=== PATIENT | female | born 1945 | race Caucasian/White ===

== ENCOUNTER 2016-11-29 15:29 | Observation (INO) | payer OTHER, MEDICARE ==
[2016-11-29] MEDS ORDERED: DILTIAZEM 25 MG/5 ML VIAL IVP ONE (15:49)
--- NOTE | 2016-11-29 15:49 | CPEKG ---
Heart Rate: 123 RR Interval: 488 QRSD Interval: 88 QT Interval: 324 QTC Interval: 464 QRS [place]: 31 T Wave [place]: -43 EKG Severity - ABNORMAL ECG - EKG Impression: ATRIAL FIBRILLATION, V-RATE 94-165 Electronically Signed By: Dileep Mota 29-Nov-2016 20:07:56
[2016-11-29 15:54] LABS: % IMMATURE GRANULYOCYTES 0.2 % (0.0-1.1); ABSOLUTE IMMATURE GRANULOCYTES 0.01 10^3/uL (0.00-0.10); ADD DIFF? NO; ADD MORPH? NO; ADD SCAN? NO; ATYPICAL LYMPHOCYTE FLAG 20 (0-99); FRAGMENT RBC FLAG 0 (0-99); HEMATOCRIT 45.5 % (38.0-47.0); HEMOGLOBIN 15.1 g/dL (12.6-16.3); LEFT SHIFT FLG 0 (0-99); LIPEMIA HEMOLYSIS FLAG 80 (0-99); MEAN CELL HEMOGLOBIN 28.9 pg (27.9-34.1); MEAN CELL HEMOGLOBIN CONCENTR. 33.2 g/dL (32.4-36.7); MEAN CELL VOLUME 87.2 fL (81.5-99.8); MEAN PLATELET VOLUME 9.3 fL (8.7-11.7); PLATELET CLUMPS FLAG 0 (0-99); PLATELET COUNT 484 10^3/uL (150-400); RED BLOOD CELL COUNT 5.22 10^6/uL (4.18-5.33); RED CELL DISTRIBUTION WIDTH 13.4 % (11.5-15.2)
--- NOTE | 2016-11-29 15:59 | EDPHY ---
HPI/HX/ROS/PE/MDM Narrative: Chief complaint: Palpitations, dizziness HPI: 71-year-old female with history of pemphigus otherwise no significant medical problems presenting with palpitations and dizziness. Patient states that she had a flu-like illness 2 weeks ago which lasted for about a week including body aches, nausea,. When 1 day of vomiting. No diarrhea. She saw her PCP was told was likely fluid but did not have a confirmatory test done. Since that time patient has feeling somewhat lightheaded with some eggs dyspnea on exertion which she has attributed just to recovering from her illness. She does state that she was feels better. Patient states that last night while getting ready for bed she feel that her heart was beating fast and irregular. She has a history of irregular heartbeats in the past has worn a Holter monitor but has never been found to be in any abnormal rhythm. She went to urgent care today was noted to be in a atrial fibrillation with a rapid ventricular response. They sent her here for further evaluation. Denies any fever or chills. No chest pain. Some mild shortness of breath walking up stairs. Has not had any syncope but has felt lightheaded. ROS: 10 point Review of Systems is negative except as noted in the HPI. Past medical history: Pemphigus Medications: Vitamin-D Allergies: No known drug allergies Physical exam: Gen: Awake, Alert, No Distress HEENT: Nose: no rhinorrhea Eyes: PERRLA, EOMI Mouth: Moist mucosa Neck: Supple, no JVD Chest: nontender, lungs clear to auscultation Heart: Irregularly irregular, tachycardic, S1, S2 normal, no murmurs Abd: Soft, non-tender, no guarding Back: no CVA tenderness, no midline tenderness Ext: no edema, non-tender Skin: no rash Neuro: CN II-XII intact, Sensation grossly intact, Strength 5/5 in bilateral upper and lower extremities ED Course: ECG: Irregularly irregular with a rate of 102-179, atrial fibrillation. Mild likely rate-related ST depression less than 1 mm in V3 through V6. No reciprocal changes. Impression: Atrial fibrillation with rapid ventricular response. 71-year-old woman with a new onset AF with RVR of unknown duration. ECG here shows AF with a rate from 102-179. She is otherwise hemodynamically stable. I have ordered 5 mg of IV diltiazem slow push. Electrolytes have been sent. I have discussed case with Dr. Leah Davis, hospitalist. She will admit to the PCU for further care. She agrees with subcu Thaisx at this time. - Data Points Laboratory Results: 11/29/16 15:00 WBC Pending RBC Pending Hgb Pending Hct Pending MCV Pending MCH Pending MCHC Pending RDW Pending Plt Count Pending MPV Pending Neut % (Auto) Pending Lymph % (Auto) Pending [place] % (Auto) Pending Eos % (Auto) Pending Baso % (Auto) Pending Nucleat RBC Rel Count Pending Absolute Neuts (auto) Pending Absolute Lymphs (auto) Pending Absolute Monos (auto) Pending Absolute Eos (auto) Pending Absolute Basos (auto) Pending Absolute Nucleated RBC Pending Immature Gran % Pending Immature Gran # Pending Sodium Pending Potassium Pending Chloride Pending Carbon Dioxide Pending Anion Gap Pending BUN Pending Creatinine Pending Estimated GFR Pending Glucose Pending Calcium Pending Departure - Departure Disposition: [facility] Inpatient Acute Clinical Impression: Atrial fibrillation Condition: Fair
[2016-11-29 16:00] LABS: ANION GAP 14 mEq/L (8-16); CALCIUM 9.1 mg/dL (8.5-10.4); CARBON DIOXIDE 25 mEq/l (22-31); CHLORIDE 105 mEq/L (97-110); CREATININE 0.8 mg/dL (0.6-1.0); GLOMERULAR FILTRATION RATE > 60; GLUCOSE 113 mg/dL (70-100); SODIUM 144 mEq/L (134-144)
[2016-11-29] MEDS ORDERED: ENOXAPARIN 80 MG/0.8 ML SYR SC ONE (16:03)
[2016-11-29] MEDS ORDERED: DILTIAZEM 125 MG in D5W 125 ML IV ONE (16:55)
[2016-11-29] MEDS ORDERED: ACETAMINOPHEN 325 MG TAB PO PRN (17:49)
[2016-11-29] MEDS ORDERED: ONDANSETRON 4 MG/2 ML VIAL IVP PRN (17:49)
[2016-11-29] MEDS ORDERED: DILTIAZEM 125 MG in D5W 125 ML IV SCH (18:00)
[2016-11-29] MEDS ORDERED: NS 1,000 ML IV SCH (18:00)
--- NOTE | 2016-11-29 18:32 | GHP ---
[f rep st] HISTORY AND PHYSICAL DATE OF ADMISSION: 11/29/2016 CHIEF COMPLAINT: Palpitations. HISTORY OF PRESENT ILLNESS: The patient is a 71-year-old female who had a flu-like illness with myal gias and vomiting about 2 weeks ago. The main symptoms have been resolved for the last week; however , she remains very weak, and she lost 10 pounds with this illness and it is still affecting her signi ficantly. Last night, she started to notice some palpitations and felt very dizzy. She noted she wa s having a fast irregular heartbeat. She has worn a Holter monitor in the past for palpitations but they had always read negative. Every time she stands up, she gets very dizzy. She denies any chest pain, shortness of breath, or lower extremity edema. PAST MEDICAL HISTORY: 1. Pemphigus. 2. Urine cancer, status post hysterectomy. 3. Hyperlipidemia. MEDICATIONS: Please see computer record for full detailed list. ALLERGIES: No known drug allergies. SOCIAL HISTORY: No smoking. She drinks alcohol socially. She lives alone with her dog. REVIEW OF SYSTEMS: Complete review of systems obtained. Review of systems is negative on constitutio nal, HEENT, GI, pulmonary, cardiovascular, , hematology, skin, musculoskeletal, endocrine, psych, e xcept for positives and pertinent negatives as under HPI. FAMILY HISTORY: Reviewed. Positive for hyperlipidemia in her mother. PHYSICAL EXAMINATION: GENERAL: Well-developed, well-nourished female in no acute distress. VITAL S IGNS: Temperature is 36.9, pulse 125, blood pressure 141/85, satting 96% on room air. EYES: Normal conjunctivae. Pupils equal, react to light. ENT: Normal ears, nose. Hearing intact. Normal teet h. Oropharynx moist. NECK: Trachea midline. No thyromegaly. CHEST: Normal effort. LUNGS: Edie r to auscultation bilaterally. CARDIOVASCULAR: Irregularly irregular. No murmur. No lower extremi ty edema. ABDOMEN: Soft, nontender. No hepatosplenomegaly. SKIN: Warm, dry, intact, without rash . MUSCULOSKELETAL: No cyanosis or clubbing. Strength 5/5 upper and lower extremities. NEUROLOGIC: Cranial nerves intact. Normal sensation to light touch. PSYCHIATRIC: Alert and oriented x3. Nor mal mood and affect. Normal judgment and insight. Normal memory. LABORATORY DATA: White count 6.25, hematocrit 45.5, platelets 484. Sodium 144, potassium 4.0, chlor belén 105, bicarb 25, BUN 17, creatinine 0.8, glucose 113. EKG, viewed by me, my personal interpretati on is atrial fibrillation with a heart rate of 123. No ST-T wave changes. ASSESSMENT/PLAN: 1. New onset atrial fibrillation. Her history of previous intermittent palpitations, however, sugge sts that she may have been doing this for some time in the past. Rate control will currently be with an IV diltiazem drip overnight. She received an 80 mg dose of subcu Lovenox in the emergency room. Her CHADS2-VASc score is 2 which gives her a yearly stroke risk of 2.2% for which anticoagulation is recommended. We will her start on Eliquis. I will make her n.p.o. after midnight. If she still re silver in atrial fibrillation by morning, cardioversion could be considered. We will check an echocar diogram and a TSH. 2. Hyperlipidemia. Currently not on any medical treatment. We will recheck her lipid panel in the morning. 3. DVT prophylaxis. She is moderate risk. She will be placed on Eliquis, as discussed above. CODE STATUS: Full. ADMISSION STATUS: We will admit under observation as she will hopefully be able go home tomorrow. /[id number]/MODL
[2016-11-29] MEDS: APIXABAN 5 MG TAB PO SCH ×2 (20:15→22:49)
[2016-11-30 05:31] LABS: CHOLESTEROL 224 mg/dL (140-220); CHOLESTEROL/HDL RATIO 5.46 RATIO (1.00-4.44); HIGH DENSITY LIPOPROTEIN 41 mg/dL (40-85); LDL/HDL RATIO 3.83 RATIO (1.00-3.22); LOW DENSITY LIPOPROTEIN 157 mg/dL (80-100); NON-HIGH DENSITY LIPOPROTEIN 183 mg/dL (90-129); TRIGLYCERIDE 131 mg/dL (35-135); VERY LOW DENSITY LIPOPROTEINS 26 mg/dL (8-25)
[2016-11-30 05:38] LABS: TROPONIN I < 0.012 ng/mL (0-0.034)
--- NOTE | 2016-11-30 08:23 | DX ---
Portable Chest, Single View 6:20 AM Hours Indication: Shortness of breath Comparison: None Findings: Lungs are clear except mild diffuse peribronchial thickening. No pneumothorax, airspace con solidation, edema or effusion. Heart size normal. Impression: Mild bronchitis.
--- NOTE | 2016-11-30 08:37 | HOSPPROG ---
[id number] Dr. Ridley -plan to undergo cardioversion today, Eliquis #Recent viral infection -feeling better. CXR shows bronchitis -supportive care #HLD: pt declines statin #Disp: awaiting cardioversion Subjective: no dizziness today Objective: Vital Signs Temp Pulse Resp BP Pulse Ox 37.0 C 68 18 100/59 L 95 11/30/16 07:13 11/30/16 07:13 11/30/16 07:13 11/30/16 07:13 11/30/16 07:13 11/29/16 11/30/16 12/01/16 05:59 05:59 05:59 Intake Total 820 Output Total 2000 Balance -1180 - Physical Exam Constitutional: no apparent distress Eyes: PERRL Ears, Nose, Mouth, Throat: moist mucous membranes Cardiovascular: irregularly irregular, tachycardia, edema (trace LE edema) Respiratory: no respiratory distress, no rales or rhonchi Gastrointestinal: normoactive bowel sounds Genitourinary: no bladder fullness Skin: warm Musculoskeletal: full muscle strength ICD10 Worksheet Patient Problems: Problems Problem Status Diagnosed Atrial fibrillation Acute
--- NOTE | 2016-11-30 08:59 | CPEKG ---
Heart Rate: 73 RR Interval: 822 QRSD Interval: 92 QT Interval: 424 QTC Interval: 468 QRS [place]: 53 T Wave [place]: -46 EKG Severity - ABNORMAL ECG - EKG Impression: ATRIAL FIBRILLATION, V-RATE 55-88 EKG Impression: UNCHANGED IN COMPARISON TO PRIOR Electronically Signed By: Georges Infante 30-Nov-2016 10:00:55
[2016-11-30] MEDS: APIXABAN 5 MG TAB PO SCH (09:39)
[2016-11-30] MEDS: DILTIAZEM 30 MG TAB PO SCH ×3 (09:41→18:30)
--- NOTE | 2016-11-30 10:12 | ECHO ---
[id number] + + [address] : : [place] [address] : : [phone] + + Adult Echocardiographic Report + ----+ :Name: Gael CANTU Date: 11/30/2016 08:28 AM : : Hospital Admission Number: [id number] Location: 203: :: 1945 Gender: Female Height: 61 in : :Age: 71 yrs Race: WH Weight: 165 lb : :Reason For Study: Atrial Fibrillation : : BSA: 1.7 meters2 : + ----+ MMode/2D Measurements & Calculations IVSd: 1.1 cm LVIDd: 5.0 cm EDV(Teich): Ao root diam: LVPWd: 0.90 cm 117.3 ml 3.6 cm LA dimension: 4.0 cm LVLd ap4: 7.3 cm SV(MOD-sp4): EDV(MOD-sp4): 41.0 ml 67.0 ml LVLs ap4: 6.2 cm ESV(MOD-sp4): 26.0 ml EF(MOD-sp4): 61.2 % Normal Measurement Values: + + :LVIDd (3.5-5.7cm) IVSd (0.6-1.1cm) LVPWd (0.6-1.1cm) Aortic Root (2.0-3.7cm)Left Atrium (1.5-4.0cm): :LV Vol(d) (76-115ml) LV Vol(s) (29-48ml) [place]ec Fraction (50-65%)PV Mervin (0.6- 1.2m/s) TV Mervin (0.4-1.0m/s) : :MV E Mervin (0.8-1.0m/s)MV A Mervin (0.3-1.0m/s)LVOT Mervin (0.7-1.2m/s) Asc Ao Mervin ( 0.9-1.8m/s) : + + Doppler Measurements & Calculations MV E max mervin: 59.2 cm/sec Ao V2 max: 81.4 cm/sec TR max mervin: 173.7 cm/sec Ao max P.7 mmHg TR max P.1 mmHg Ao mean P.2 mmHg RAP systole: 5.0 mmHg Ao V2 mean: 68.5 cm/sec RVSP(TR): 17.1 mmHg Ao V2 VTI: 17.4 cm Left Ventricle The left ventricle is normal in size. There is normal left ventricular wall thickness. Left ventricular systolic function is normal. Ejection Fraction = 60-65%. No regional wall motion abnormalities noted. Right Ventricle The right ventricle is normal in size and function. Atria The left atrial size is normal. Right atrial size is normal. Mitral Valve The mitral valve is normal in structure and function. There is no evidence of mitral valve prolapse. There is no mitral valve stenosis. There is mild mitral regurgitation. Tricuspid Valve Normal tricuspid valve. There is mild tricuspid regurgitation. Right ventricular systolic pressure is normal. Aortic Valve The aortic valve is trileaflet. The aortic valve opens well. There is no aortic stenosis. Trace to mild aortic regurgitation. Pulmonic Valve The pulmonic valve is normal in structure and function. There is no pulmonic valvular regurgitation. Great Vessels The aortic root is normal size. Mildly dilated ascending aorta. Ascending aorta is 4.2 cm. Pericardium/Pleural There is no pericardial effusion. Conclusion A complete two-dimensional transthoracic echocardiogram was performed (2D, M-mode, Doppler and color flow Doppler). Previous echo at [facility] 01/20. Left ventricular systolic function is normal. Ejection Fraction = 60-65%. There is mild mitral regurgitation. There is mild tricuspid regurgitation. Right ventricular systolic pressure is normal. Trace to mild aortic regurgitation. Mildly dilated ascending aorta. Final Reading Physician: Dr Lashay Webb electronically signed on 11/30/2016 10:11 AM Ordering Physician: Leah Davis Performed By: Astrid Lewis, JARVIS
[2016-11-30] MEDS ORDERED: DILTIAZEM 30 MG TAB PO SCH (12:00)
[2016-11-30] MEDS ORDERED: BENZOCAINE UNIT DOSE SPRAY HURRICAINE MM ONE (12:15)
[2016-11-30] MEDS ORDERED: PROPOFOL 200 MG/20 ML VIAL IVP ONE (12:15)
[2016-11-30] MEDS ORDERED: MIDAZOLAM 2 MG/2 ML VIAL IVP ONE (12:15)
[2016-11-30] MEDS ORDERED: NS 500 ML IV ONE (12:15)
[2016-11-30] MEDS ORDERED: fentaNYL 100 MCG/2 ML INJ IVP ONE (12:15)
--- NOTE | 2016-11-30 12:36 | CPEKG ---
Heart Rate: 84 RR Interval: 714 QRSD Interval: 90 QT Interval: 392 QTC Interval: 464 QRS [place]: 65 T Wave [place]: -44 EKG Severity - ABNORMAL ECG - EKG Impression: ATRIAL FIBRILLATION, V-RATE 62-100 Electronically Signed By: Graham Mora 30-Nov-2016 19:46:10
--- NOTE | 2016-11-30 15:20 | GCON ---
[f rep st] CONSULTATION CARDIOLOGY CONSULT REASON FOR CONSULTATION: New onset of atrial fibrillation with rapid ventricular response. HISTORY OF PRESENT ILLNESS: The patient reports history of 2 weeks of being diagnosed with "the flu," reporting nasal swabs, has been dealing with an upper respiratory infection with malaise, and occasional nausea and vomiting. She reports she has been improving over the last few weeks. She has been following up with her PCP. She does report that she has had a 10 pound weight loss due to the illness and it has affected her significantly. She reports she had been feeling that she had been improving until Wednesday night in which she felt her heart rate had been running significantly faster than normal with episodes of lightheadedness, reporting occasional near-syncope with standing too quickly, but no actual syncopal events. This had concerned her with worsening symptoms that she came to the hospital yesterday afternoon with no improvement in her symptoms. At that time,it was discovered that she was in atrial fibrillation with rapid ventricular response. Rates varied between 102-179 beats per minute. She had been started on a diltiazem drip, admitted to the hospitalist service. She obtained better rate control and she has been started on anticoagulation of Eliquis. She did have an echocardiogram done yesterday after admission showing normal LV systolic function with EF of 60-65%, mild MR, mild TR, RVSP was normal , trace to mild AI, mildly dilated ascending aorta at 4.2 cm. The patient reports prior to her palpitations she had been using her albuterol significantly more in the last 3 days prior. She does report occasional episode of chest pressure, reporting midsternal, not associated with nausea or diaphoresis. Reporting episodes usually lasted within 1-2 minutes and then subsided, coming on spontaneously during the time that she had rapid heart rate. Since hospitalization, she is under better rate control and has been recently transferred to oral diltiazem. Unfortunately, she does continue to feel fatigued and lightheaded, and when she does get up her atrial fibrillation rate does get up to 120 bpm. She reports since hospitalization no further episodes of chest pressure. She has had negative troponins x2. She does have significant past history of near-syncopal episodes, in which she was evaluated by Dr. Dumont of our practice in March of 2015. There, she did undergo Holter monitoring, which showed occasional PAC and very short bursts of SVT up to 8 beats in length at a rate of 160 bpm, rare preemie PVCs. Also, hyperlipidemia in which she has refused statin therapy in the past. She denies any orthopnea, PND, edema, or symptoms suggestive of TIA or CVA. PAST MEDICAL HISTORY: Includes asthma (rarely uses inhaler), genital herpes, GERD, hyperglycemia, irritable bowel syndrome, migraines, pemphigus, uterine cancer, hyperlipidemia. PAST SURGICAL HISTORY: Includes tonsillectomy. FAMILY HISTORY: Patient with family history that includes heart disease for her father, hyperlipidemia for her mother, and brother with history of hypertension and atrial fibrillation. SOCIAL HISTORY: She lives alone. She is a nonsmoker. She occasionally drinks alcohol. She denies of any illicit drug use. She is retired. ALLERGIES: Patient has no known drug allergies. MEDICATIONS ON ADMISSION: Include: 1. Gaviscon AC liquid 5 mg p.o. h.s. p.r.n. 2. Albuterol 1-2 puffs inhaler q.4 hours p.r.n. 3. Vitamin D 1000 units p.o. daily. REVIEW OF SYSTEMS: Ten-point review of systems on this patient all negative, except as mentioned above. PHYSICAL EXAMINATION: GENERAL APPEARANCE: Medium built, mildly obese female. She is alert and orientated to person, place, time, and situation, appears to be under no acute distress. VITAL SIGNS: Blood pressure 102/69, heart rate of 77, atrial fibrillation on the monitor, respirations 16, saturating 96% on room air, temperature 37.1 degrees Celsius. HEENT: Head is normocephalic. Lips and tongue are pink and moist with no signs of cyanosis. Conjunctivae pink. NECK: Trachea is midline. + 2 carotid pulses bilaterally. No auscultated bruits. No jugular vein distention. RESPIRATORY: Lungs with mild rhonchi, which clear with cough. CARDIAC: Irregular rate, irregular rhythm. S1 and S2. No rubs, gallops, or murmurs noted. ABDOMEN: Soft, nontender. Bowel sounds 4 quadrants. No organomegaly. No palpable masses. SKIN: [place], warm, dry. No cyanosis. No clubbing. No peripheral edema. VASCULAR: +2 carotids bilaterally. +2 radials bilaterally. +1 dorsal pedal and posterior tibial pulses bilaterally. NEURO: Cranial nerves 2-12 grossly intact. LABS: Admission CBC showed WBC 6.25, hemoglobin of 15.1, hematocrit 45.5, platelet count 484. Sodium 144, potassium 4.0, chloride 105, CO2 was 25, BUN 17 , creatinine 0.8, glucose 113. Calcium 9.1. Troponin is noted to be less than 0.012 x2 this morning. Triglycerides were 131, total cholesterol 224, LDL 157, HDL 41. TSH was 2.270 drawn today. IMAGING: Initial electrocardiogram done on admission showed atrial fibrillation , with rapid ventricular response. Repeat electrocardiogram done this morning shows atrial fibrillation with normal rate, nonspecific T-wave abnormalities in inferolateral leads. Chest x-ray shows mild bronchitis. Echocardiogram as mentioned above. ASSESSMENT AND PLAN: 1. Atrial fibrillation with rapid ventricular rate, better rate control with diltiazem at rest. Unfortunately, with any exertion heart rate increases up to the 120s and 130s, reporting patient feeling lightheaded and short of breath with any exertion. She had been started on Eliquis yesterday by hospitalist service. Due to her ongoing symptoms of fatigue and lightheadedness with any exertion, it is felt best that patient proceed on with electrocardioversion. Due to unknown time of atrial fibrillation, we will plan to do a VISHAL before this to assure there is no thrombus in her atrium. Risks and benefits of this procedure were explained to the patient and her son. They both verbalized understanding and are wanting to proceed. It was also explained to the patient that due to her [id number] score of 2 and cardioversion, she will need to remain on anticoagulation for a minimum of 6 weeks postcardioversion, and if she has any other atrial fibrillation events it would be recommended that she stay on anticoagulation lifetime. Will plan that she undergoes 30 day monitor to evaluate her AFib burden as an outpatient. 2. Hypercholesterolemia: Patient noted to have hypercholesterolemia. She has refused statin therapy in the past and she continues to refuse statin at this time. 3. Chest pressure: Patient reported episodes of chest pressure with rapid heart rate initially lasting for less than a few seconds. Troponins are negative. Mildly abnormal electrocardiogram. Echocardiogram showing normal LV wall motion with normal ejection fraction. Would consider further risk analyzing patient stress testing at some point, with her cardiac risk factors. As long as she remains symptom-free, would consider doing as an outpatient in the near future. 4. Upper respiratory infection: She is being followed by hospitalist service. Thank you for this consultation. More recommendations will come post cardioversion. /[id number]/MODL MTDD
[2016-11-30] MEDS ORDERED: PROPOFOL 200 MG/20 ML VIAL ONE (16:02)
[2016-11-30] MEDS ORDERED: MIDAZOLAM 2 MG/2 ML VIAL ONE ×2 (16:03→16:22)
[2016-11-30] MEDS ORDERED: ATROPINE SULFATE 1 MG/10 ML SYR ONE (16:24)
--- NOTE | 2016-11-30 16:50 | PDTEE1 ---
VISHAL Cardioversion Procedure Procedure: Electrical Cardioversion, Transesophageal Echo Indications: Atrial Fibrillation Consent: Signed and in Chart Anticoagulation: Eliquis Procedural Details: Pads were placed in anterior-posterior position. VISHAL probe was advanced and standard images obtained. There is no evidence of left atrial or left atrial appendage thrombus. Synchronized cardioversion attempt #1: 200J Results: Normal sinus rhythm Conclusions: Successful VISHAL Cardioversion Conclusion Comment: continue eliquis for minimum of 4 weeks. Follow up with Dr. Dumont or Dr Wbeb Patient Problems: Problems Problem Status Diagnosed Atrial fibrillation Acute
--- NOTE | 2016-11-30 16:58 | CPEKG ---
Heart Rate: 62 RR Interval: 968 P-R Interval: 156 QRSD Interval: 102 QT Interval: 436 QTC Interval: 443 P [place]: 72 QRS [place]: 30 T Wave [place]: 0 EKG Severity - ABNORMAL ECG - EKG Impression: SINUS RHYTHM EKG Impression: ST DEPRESSION, ANTEROLATERAL LEADS CONSIDER ISCHEMIA POSTERIOR INJURY Electronically Signed By: Graham Mora 30-Nov-2016 19:45:56
[2016-11-30 17:42] VITALS: BP 128/79; RESP 14; TEMP 97.3; O2SAT 93
[2016-11-30 18:20] VITALS: PULSE 60
--- NOTE | 2016-12-01 05:02 | GDS ---
[f rep st] DISCHARGE SUMMARY DISCHARGE DIAGNOSES: 1. New onset atrial fibrillation. 2. Dizziness. 3. Recent viral infection. 4. History of pemphigus. 5. History of uterine cancer, status post hysterectomy. 6. Hyperlipidemia. CONSULTATIONS: Cardiology. PROCEDURES: Successful cardioversion. HISTORY OF PRESENT ILLNESS: Patient is a 71-year-old female, who has had flu- like symptoms including myalgias, vomiting, and weakness 2 weeks ago. Main symptoms have resolved over the last week; however, she remains very weak and has lost 10 pounds with this illness. Last night, she started noticing palpitations and felt very dizzy. She was noted to have a very fast irregular heart rate. She has worn a Holter monitor in the past for palpitations, but they had always read negative per patient. Every time patient stands up, she gets very dizzy. She denies chest pain, shortness of breath, or lower extremity edema. HOSPITAL COURSE BY PROBLEM: 1. New onset atrial fibrillation: HRs 120-130s, symptomatic. Admitted to PCU on diltiazem drip with improvement of her heart rate, but did not convert to sinus rhythm. Started on Eliquis. Underwent successful cardioversion. Echocardiogram showed normal LV function as well as RV. Continue Eliquis for 6 weeks post cardioversion, diltiazem 60mg BID. Follow up with Dr. Dumont or Dr. Webb. 2. Viral illness: Patient states she is feeling better. She is taking in p.o. intake without issue. Electrolytes are within normal. 3. Hyperlipidemia: Patient has refused statin in the past and still declines, though cholesterol elevated at 224. 4. History of uterine cancer, status post hysterectomy. DISPOSITION: Patient is stable for discharge. MEDICATIONS: New medications: Eliquis and diltiazem. FOLLOW UP: 1. Dr. Dumont or Dr. Lashay Webb.. 2. Primary care physician. /[id number]/MODL MTDD
--- NOTE | 2016-12-03 09:13 | ECHO ---
[id number] + + [address] : : [place] [address] : : [phone] + + Transesophageal Echocardiographic Report + ----+ :Name: Gael CANTU Date: 11/30/2016 03:35 PM : : Hospital Admission Number: [id number] Location: [facility]: :: 1945 Gender: Female : :Age: 71 yrs Race: WH : :Reason For Study: Atrial Fibrillation : + ----+ Left Ventricle The left ventricle is normal in size and function. Atria Injection of contrast documented no interatrial shunt. No thrombus is detected in the left atrial appendage. Mitral Valve The mitral valve is normal. There is trace mitral regurgitation. Tricuspid Valve There is trace tricuspid regurgitation. Aortic Valve The aortic valve is trileaflet. Mild aortic regurgitation. Pulmonic Valve The pulmonic valve is normal in structure and function. Procedure Informed consent obtained and timeout performed. Sedation provided by the anesthesia service. VISHAL probe passed without difficulty. No complications. Conclusion A 2D transesophageal echocardiogram with color flow Doppler was performed. Proceed with cardioversion. The left ventricle is normal in size and function. Injection of contrast documented no interatrial shunt. No thrombus is detected in the left atrial appendage. Mild aortic regurgitation. There is trace mitral regurgitation. There is trace tricuspid regurgitation. Final Reading Physician: Dr Lashay Webb electronically signed on 12/03/2016 09:12 AM Ordering Physician: Leah Davis Performed By: Dr Lashay Webb
== END 2016-11-30 19:09 | disposition home or self-care (01) ==
LOC: EDUNIT# → INTOOBSV 16:03 → F2W 18:00
PROVIDERS: ADMIT Internal Medicine; ATTEND Internal Medicine
PROC: B246ZZ4 Ultrasonography of Right and Left Heart, Transesophageal (ICD-10-PCS; principal; 2016-11-29)
PROC: 5A2204Z Restoration of Cardiac Rhythm, Single (ICD-10-PCS; principal; 2016-11-29)
DX: I48.91 Unspecified atrial fibrillation (principal); I08.1 Rheumatic disorders of both mitral and tricuspid valves; E78.5 Hyperlipidemia, unspecified; J40 Bronchitis, not specified as acute or chronic; B34.9 Viral infection, unspecified; L10.9 Pemphigus, unspecified; Z85.42 Personal history of malignant neoplasm of other parts of uterus
CPT/HCPCS: 71010; 92960; 93005; 93306; 93312; 96365; 96372; 99285; G0378; J1650; J2250; J2704; J0461

== ENCOUNTER → 2016-12-09 | Outpatient (CLI) | payer OTHER, MEDICARE | LOC: BHFA 13:00 | PROVIDERS: ATTEND Internal Medicine Cardiovascular Disease | DX: R07.9 Chest pain, unspecified (principal) | CPT/HCPCS: 78452; 93017; A9500 ==

== ENCOUNTER → 2016-12-14 | Outpatient (CLI) | payer OTHER, MEDICARE | LOC: BHFA 09:45 | PROVIDERS: ATTEND Internal Medicine Cardiovascular Disease | DX: I48.0 Paroxysmal atrial fibrillation (principal); E78.5 Hyperlipidemia, unspecified ==

== ENCOUNTER → 2017-05-28 | Outpatient (CLI) | payer OTHER, MEDICARE | LOC: BMCIMAGING 10:53 | PROVIDERS: ATTEND Family Medicine | DX: S92.512A Displaced fracture of proximal phalanx of left lesser toe(s), initial encounter for closed fracture (principal) ==

== ENCOUNTER 2017-06-18 05:25 | Observation (INO) | payer OTHER, MEDICARE ==
--- NOTE | 2017-06-18 06:03 | EDPHY ---
H & P Stated Complaint: AWOKE 0415, BALANCE OFF, ?LEFT SIDE WEAK, SHAKEY, DRY MOUTH, ANXIOUS Time Seen by Provider: 06/18/17 05:33 HPI/ROS: Chief Complaint: Lightheaded, left leg numbness and weakness HPI: 9-year-old woman woke this morning at about 4:30 with sensation of lightheadedness and her left leg felt numb from her hip down. She was able to get up and ambulate but felt as if her left side did not match her right. She has a history of paroxysmal atrial fibrillation for which she takes Coumadin. Denies any falls. No headache. Last INR was 1/2 weeks ago was 2.5. Denies any room spinning but is continuing to have some lightheadedness. No nausea or vomiting. No chest pain or shortness of breath. No palpitations. She has not had any back pain ROS: 10 point Review of Systems is negative except as noted in the HPI. PMH: Atrial fibrillation, remote uterine cancer status post hysterectomy, pemphigus Social History: No smoking, occasional alcohol, no recreational drug use Family History: non-contributory Physical Exam: Gen: Awake, Alert, No Distress HEENT: Nose: no rhinorrhea Eyes: PERRLA, EOMI Mouth: Moist mucosa Neck: Supple, no JVD Chest: nontender, lungs clear to auscultation Heart: S1, S2 normal, no murmur Abd: Soft, non-tender, no guarding Back: no CVA tenderness, no midline tenderness Ext: no edema, non-tender Skin: no rash Neuro: CN II-XII intact, see NIH stroke score. She does have some decreased sensation to light touch in the lateral aspect of her left thigh left calf and lateral left foot. Strength is 5 in 5 in bilateral lower extremities - Personal History Current Tetanus/Diphtheria Vaccine: Unsure - Medical/Surgical History Hx Asthma: Yes Hx Chronic Respiratory Disease: No Hx Diabetes: No Hx Cardiac Disease: No Hx Renal Disease: No Hx Cirrhosis: No Hx Alcoholism: No Hx HIV/AIDS: No Hx Splenectomy or Spleen Trauma: No Other PMH: PMH: asthma, uterine cancer. pemphigus. tonsillectomy, cataract surgery, hysterectomy, AFIB - Social History Smoking Status: Former smoker Constitutional: Initial Vital Signs Heart Rate 82 06/18/17 05:30 Respiratory Rate 22 H 06/18/17 05:30 Blood Pressure 168/93 H 06/18/17 05:30 O2 Sat (%) 97 06/18/17 05:30 O2 Delivery Mode Room Air Allergies/Adverse Reactions: No Known Allergies Allergy (Unverified 06/18/17 05:29) Home Medications: Medication Instructions Recorded Diltiazem HCl [Diltiazem 12Hr ER] 60 mg PO BID #60 cap.er.12h 11/30/16 Medical Decision Making - Diagnostics EKG Interpretation: ECG time 6:03 a.m. sinus rhythm with a rate of 70, normal axis, normal intervals , no acute ST or T-wave changes. Impression: Normal ECG. ED Course/Re-evaluation: Patient is refusing CT scan at this time. She would prefer to have an MRI. NIH stroke score is 1. This is due to mild left leg lateral dullness to light touch and asymmetry to sensation. She does have risk factors for CVA she is paroxysmal AFib on Coumadin. She is not currently in AFib. Will check blood work including coags. Patient discussed with Dr. argueta, hospitalist. She will admit to her service for further care. Will hold off on aspirin until MRI rules out bleed. Patient has continued to refuse CT scan of the brain. - Data Points Laboratory Results: Laboratory Results 06/18/17 06:10 06/18/17 06:10 06/18/17 06/18/17 06/18/17 06:10 06:10 06:10 WBC RBC Hgb Hct MCV MCH MCHC RDW Plt Count MPV Neut % (Auto) Lymph % (Auto) Wayne % (Auto) Eos % (Auto) Baso % (Auto) Nucleat RBC Rel Count Absolute Neuts (auto) Absolute Lymphs (auto) Absolute Monos (auto) Absolute Eos (auto) Absolute Basos (auto) Absolute Nucleated RBC Immature Gran % Immature Gran # PT 20.8 SEC H SEC (12.0-15.0) INR 1.78 H (0.83-1.16) APTT 33.3 SEC SEC (23.0-38.0) Sodium 137 mEq/L mEq/L (134-144) Potassium 3.9 mEq/L mEq/L (3.5-5.2) Chloride 102 mEq/L mEq/L (97-110) Carbon Dioxide 26 mEq/l mEq/l (22-31) Anion Gap 9 mEq/L mEq/L (8-16) BUN 20 mg/dL mg/dL (7-23) Creatinine 0.9 mg/dL mg/dL (0.6-1.0) Estimated GFR > 60 Glucose 90 mg/dL mg/dL (70-100) Calcium 9.3 mg/dL mg/dL (8.5-10.4) Troponin I Pending Urine Color Urine Appearance Urine pH Ur Specific [place] Urine Protein Urine Ketones Urine Blood Urine Nitrate Urine Bilirubin Urine Urobilinogen Ur Leukocyte Esterase Urine Glucose 06/18/17 06/18/17 06:10 06:10 WBC 6.41 10^3/uL 10^3/uL (3.80-9.50) RBC 4.85 10^6/uL 10^6/uL (4.18-5.33) Hgb 13.8 g/dL g/dL (12.6-16.3) Hct 42.0 % % (38.0-47.0) MCV 86.6 fL fL (81.5-99.8) MCH 28.5 pg pg (27.9-34.1) MCHC 32.9 g/dL g/dL (32.4-36.7) RDW 13.7 % % (11.5-15.2) Plt Count 276 10^3/uL 10^3/uL (150-400) MPV 9.4 fL fL (8.7-11.7) Neut % (Auto) 49.4 % % (39.3-74.2) Lymph % (Auto) 37.1 % % (15.0-45.0) Wayne % (Auto) 10.1 % % (4.5-13.0) Eos % (Auto) 2.2 % % (0.6-7.6) Baso % (Auto) 0.9 % % (0.3-1.7) Nucleat RBC Rel Count 0.0 % % (0.0-0.2) Absolute Neuts (auto) 3.16 10^3/uL 10^3/uL (1.70-6.50) Absolute Lymphs (auto) 2.38 10^3/uL 10^3/uL (1.00-3.00) Absolute Monos (auto) 0.65 10^3/uL 10^3/uL (0.30-0.80) Absolute Eos (auto) 0.14 10^3/uL 10^3/uL (0.03-0.40) Absolute Basos (auto) 0.06 10^3/uL 10^3/uL (0.02-0.10) Absolute Nucleated RBC 0.00 10^3/uL 10^3/uL (0-0.01) Immature Gran % 0.3 % % (0.0-1.1) Immature Gran # 0.02 10^3/uL 10^3/uL (0.00-0.10) PT INR APTT Sodium Potassium Chloride Carbon Dioxide Anion Gap BUN Creatinine Estimated GFR Glucose Calcium Troponin I Urine Color Pending Urine Appearance Pending Urine pH Pending Ur Specific [place] Pending Urine Protein Pending Urine Ketones Pending Urine Blood Pending Urine Nitrate Pending Urine Bilirubin Pending Urine Urobilinogen Pending Ur Leukocyte Esterase Pending Urine Glucose Pending Departure - Departure Disposition: [facility] Inpatient Acute Clinical Impression: TIA (transient ischemic attack) Condition: Fair Referrals: Justine Hernández MD [Primary Care Provider] - As per Instructions NIH Stroke Scale Date of Exam: 06/18/17 Time of Exam: 05:45 Level of Consciousness: Alert LOC Questions: Answers Both LOC Commands: Performs Both Correctly Best Gaze: Normal Visual: No Visual Loss Facial Palsy: Normal Motor Arm-Left: No Drift Motor Arm-Right: No Drift Motor Leg-Left: No Drift Motor Leg-Right: No Drift Limb Ataxis: Absent Sensory: Mild/Mod Sensory Loss Best Language: No Aphasia Dysarthria: Normal Extinction and Inattention (Neglect): No Abnormality NIH Scale Score: 1
--- NOTE | 2017-06-18 06:04 | CPEKG ---
Heart Rate: 70 RR Interval: 857 P-R Interval: 156 QRSD Interval: 100 QT Interval: 376 QTC Interval: 406 P Paris: 70 QRS Paris: 30 T Wave Paris: -60 EKG Severity - NORMAL ECG - EKG Impression: SINUS RHYTHM Electronically Signed By: Dileep Mota 18-Jun-2017 06:11:13
[2017-06-18 06:21] LABS: % IMMATURE GRANULYOCYTES 0.3 % (0.0-1.1); ABSOLUTE IMMATURE GRANULOCYTES 0.02 10^3/uL (0.00-0.10); ADD DIFF? NO; ADD MORPH? NO; ADD SCAN? NO; ATYPICAL LYMPHOCYTE FLAG 10 (0-99); FRAGMENT RBC FLAG 0 (0-99); HEMOGLOBIN 13.8 g/dL (12.6-16.3); LEFT SHIFT FLG 0 (0-99); LIPEMIA HEMOLYSIS FLAG 80 (0-99); MEAN CELL HEMOGLOBIN 28.5 pg (27.9-34.1); MEAN CELL HEMOGLOBIN CONCENTR. 32.9 g/dL (32.4-36.7); MEAN CELL VOLUME 86.6 fL (81.5-99.8); MEAN PLATELET VOLUME 9.4 fL (8.7-11.7); PLATELET CLUMPS FLAG 10 (0-99); PLATELET COUNT 276 10^3/uL (150-400); RED BLOOD CELL COUNT 4.85 10^6/uL (4.18-5.33); RED CELL DISTRIBUTION WIDTH 13.7 % (11.5-15.2)
[2017-06-18 06:30] LABS: APTT 33.3 SEC (23.0-38.0); INR 1.78 (0.83-1.16); PROTIME(PATIENT) 20.8 SEC (12.0-15.0)
[2017-06-18 06:31] LABS: ANION GAP 9 mEq/L (8-16); CALCIUM 9.3 mg/dL (8.5-10.4); CARBON DIOXIDE 26 mEq/l (22-31); CHLORIDE 102 mEq/L (97-110); CREATININE 0.9 mg/dL (0.6-1.0); GLOMERULAR FILTRATION RATE > 60; GLUCOSE 90 mg/dL (70-100); POTASSIUM 3.9 mEq/L (3.5-5.2); SODIUM 137 mEq/L (134-144)
[2017-06-18 06:36] LABS: COLOR YELLOW; LEUKOCYTE ESTERASE,URINE 2+ (NEGATIVE); NITRITE,URINE NEGATIVE (NEGATIVE)
[2017-06-18] MEDS ORDERED: ACETAMINOPHEN 325 MG TAB PO PRN (06:37)
[2017-06-18] MEDS ORDERED: ONDANSETRON 4 MG/2 ML VIAL IVP PRN (06:37)
[2017-06-18] MEDS ORDERED: ONDANSETRON DISINTEGRATING 4 MG TAB PO PRN (06:37)
[2017-06-18 06:45] LABS: MUCUS TRACE /lpf (NONE-1+); WBC,URINE 15-25 /hpf (0-3)
[2017-06-18] MEDS ORDERED: GADOBUTROL 10 ML VIAL IVP ONE (07:01)
--- NOTE | 2017-06-18 07:05 | PDGENHP ---
History and Physical - Chief Complaint left side weakness / numbness - History of Present Illness 72 yo female with h/o A fib presents to ED after awakening this morning feeling lightheaded and then developed left side weakness and numbness. She was able to make it to the bathroom, with difficulty, due to left leg weakness and numbness. She denied facial droop or speech difficulty. She called her god- daughter, who is a PA, and was advised to come to the ED. She drove herself. Her symptoms are mostly resolved at this time, with a vague abnormal sensation in her left leg. She has a h/o paroxysmal A fib and takes coumadin, but notes she forgot a dose 3 days ago. She denies chest pain, SOB, or heart palpitations with this event and notes her HR was normal this morning. She is admitted to the hospital for further TIA workup. History Information - Allergies/Home Medication List Allergies/Adverse Reactions: No Known Allergies Allergy (Unverified 06/18/17 05:29) I have personally reviewed and updated: family history, medical history, social history, surgical history - Past Medical History atrial fibrillation, hyperlipidemia Additional medical history: uterine cancer, s/p hysterectomy, pemphigus - Surgical History Reports: hysterectomy - Family History Positive for: non-pertinent - Social History Smoking Status: Former smoker Alcohol Use: None Drug Use: None Additional social history: Lives alone with her dog. Review of Systems ROS: 10pt was reviewed & negative except for what was stated in HPI & below Physical Exam Temp Pulse Resp BP Pulse Ox 82 22 H 168/93 H 97 06/18/17 05:30 06/18/17 05:30 06/18/17 05:30 06/18/17 05:30 Constitutional: no apparent distress Eyes: PERRL Ears, Nose, Mouth, Throat: moist mucous membranes Cardiovascular: regular rate and rhythym Respiratory: no respiratory distress, clear to auscultation Gastrointestinal: normoactive bowel sounds, soft, non-tender abdomen Skin: warm Musculoskeletal: full muscle strength Neurologic: AAOx3, other (No facial droop. Speech fluent. Pronator drift negative. Sensation normal b/l distal LE's. 5/5 muscle strength b/l UE's and LE's) Psychiatric: interacting appropriately Lab Data & Imaging Review 06/18/17 06:10 06/18/17 06:10 WBC 6.41 10^3/uL (3.80-9.50) 06/18/17 06:10 RBC 4.85 10^6/uL (4.18-5.33) 06/18/17 06:10 Hgb 13.8 g/dL (12.6-16.3) 06/18/17 06:10 Hct 42.0 % (38.0-47.0) 06/18/17 06:10 MCV 86.6 fL (81.5-99.8) 06/18/17 06:10 MCH 28.5 pg (27.9-34.1) 06/18/17 06:10 MCHC 32.9 g/dL (32.4-36.7) 06/18/17 06:10 RDW 13.7 % (11.5-15.2) 06/18/17 06:10 Plt Count 276 10^3/uL (150-400) 06/18/17 06:10 MPV 9.4 fL (8.7-11.7) 06/18/17 06:10 Neut % (Auto) 49.4 % (39.3-74.2) 06/18/17 06:10 Lymph % (Auto) 37.1 % (15.0-45.0) 06/18/17 06:10 [place] % (Auto) 10.1 % (4.5-13.0) 06/18/17 06:10 Eos % (Auto) 2.2 % (0.6-7.6) 06/18/17 06:10 Baso % (Auto) 0.9 % (0.3-1.7) 06/18/17 06:10 Nucleat RBC Rel Count 0.0 % (0.0-0.2) 06/18/17 06:10 Absolute Neuts (auto) 3.16 10^3/uL (1.70-6.50) 06/18/17 06:10 Absolute Lymphs (auto) 2.38 10^3/uL (1.00-3.00) 06/18/17 06:10 Absolute Monos (auto) 0.65 10^3/uL (0.30-0.80) 06/18/17 06:10 Absolute Eos (auto) 0.14 10^3/uL (0.03-0.40) 06/18/17 06:10 Absolute Basos (auto) 0.06 10^3/uL (0.02-0.10) 06/18/17 06:10 Absolute Nucleated RBC 0.00 10^3/uL (0-0.01) 06/18/17 06:10 Immature Gran % 0.3 % (0.0-1.1) 06/18/17 06:10 Immature Gran # 0.02 10^3/uL (0.00-0.10) 06/18/17 06:10 PT 20.8 SEC (12.0-15.0) H 06/18/17 06:10 INR 1.78 (0.83-1.16) H 06/18/17 06:10 APTT 33.3 SEC (23.0-38.0) 06/18/17 06:10 Sodium 137 mEq/L (134-144) 06/18/17 06:10 Potassium 3.9 mEq/L (3.5-5.2) 06/18/17 06:10 Chloride 102 mEq/L (97-110) 06/18/17 06:10 Carbon Dioxide 26 mEq/l (22-31) 06/18/17 06:10 Anion Gap 9 mEq/L (8-16) 06/18/17 06:10 BUN 20 mg/dL (7-23) 06/18/17 06:10 Creatinine 0.9 mg/dL (0.6-1.0) 06/18/17 06:10 Estimated GFR > 60 06/18/17 06:10 Glucose 90 mg/dL (70-100) 06/18/17 06:10 Calcium 9.3 mg/dL (8.5-10.4) 06/18/17 06:10 Urine Color YELLOW 06/18/17 06:10 Urine Appearance CLEAR 06/18/17 06:10 Urine pH 5.0 (5.0-7.5) 06/18/17 06:10 Ur Specific [place] 1.015 (1.002-1.030) 06/18/17 06:10 Urine Protein NEGATIVE (NEGATIVE) 06/18/17 06:10 Urine Ketones NEGATIVE (NEGATIVE) 06/18/17 06:10 Urine Blood 1+ (NEGATIVE) H 06/18/17 06:10 Urine Nitrate NEGATIVE (NEGATIVE) 06/18/17 06:10 Urine Bilirubin NEGATIVE (NEGATIVE) 06/18/17 06:10 Urine Urobilinogen NEGATIVE EU (0.2-1.0) 06/18/17 06:10 Ur Leukocyte Esterase 2+ (NEGATIVE) H 06/18/17 06:10 Urine RBC 1-3 /hpf (0-3) 06/18/17 06:10 Urine WBC 15-25 /hpf (0-3) H 06/18/17 06:10 Ur Epithelial Cells TRACE /lpf (NONE-1+) 06/18/17 06:10 Urine Mucus TRACE /lpf (NONE-1+) 06/18/17 06:10 Urine Glucose NEGATIVE (NEGATIVE) 06/18/17 06:10 Visualized and Interpreted EKG results: Yes EKG Interpretation: Positive for: normal sinsus rhythm Assessment & Plan Assessment: TIA (transient ischemic attack) (Acute) - Concern for cardioembolic source given A fib history with sub-therapeutic INR. She refused head CT in the ED, but agrees to MRI. -Will defer ASA until after MRI to ensure no bleed -Check echo and carotid artery u/s -Lipid panel in am -Neurology consult Paroxysmal A fib - She is in NSR now. INR sub-therapeutic at 1.78. 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 -Cont Dilt once med rec completed -Pharmacy to dose coumadin. Will defer bridging for now as still waiting to confirm no bleed on brain imaging. Hyperlipidemia - check lipid status Full code Dispo - obs
[2017-06-18] MEDS ORDERED: DILTIAZEM 60 MG PO PRN (09:05)
[2017-06-18 10:35] VITALS: TEMP 97.4
[2017-06-18 11:50] VITALS: BP 110/57; PULSE 69; RESP 16; O2SAT 92
--- NOTE | 2017-06-18 13:13 | ECHO ---
[id number] + + [address] : : [place] [address] : : [phone] + + Adult Echocardiographic Report + ------+ :Name: RADHA CANTU Date: 06/18/2017 09:28 AM BP: 127/84 mmHg : : Hospital Admission Number: [id number] Anil n: 343: :: 1945 Gender: Female Height: 74 in : :Age: 72 yrs Race: WH Weight: 167 lb : :Reason For Study: tia; source of emboli : : BSA: 2.0 meters 2 : :History: Tia : + ------+ MMode/2D Measurements \T\ Calculations IVSd: 1.1 cm RVDd: 3.6 cm FS: 44.0 % Ao root diam: LVPWd: 0.98 cm LVIDd: 4.9 cm EDV(Teich): 3.2 cm LVIDs: 2.7 cm 111.5 ml ESV(Teich): 27.8 ml EF(Teich): 75.0 % LVLd ap4: 7.7 cm SV(MOD-sp4): EDV(MOD-sp4): 67.0 ml 120.0 ml LVLs ap4: 6.7 cm ESV(MOD-sp4): 53.0 ml EF(MOD-sp4): 55.8 % Normal Measurement Values: + + :LVIDd (3.5-5.7cm) IVSd (0.6-1.1cm) LVPWd (0.6-1.1cm) Aortic Root (2.0-3.7cm)Left Atrium (1.5-4.0cm): :LV Vol(d) (76-115ml) LV Vol(s) (29-48ml) Ejec Fraction (50-65%)PV Mervin (0.6- 1.2m/s) TV Mervin (0.4-1.0m/s) : :MV E Mervin (0.8-1.0m/s)MV A Mervin (0.3-1.0m/s)LVOT Mervin (0.7-1.2m/s) Asc Ao Mervin ( 0.9-1.8m/s) : + + Doppler Measurements \T\ Calculations MV E max mervin: Ao V2 max: LV V1 max: PA V2 max: 58.2 cm/sec 138.8 cm/sec 82.9 cm/sec 80.4 cm/sec MV A max mervin: Ao max P.7 mmHgLV V1 max PG: PA max P.9 cm/sec 2.8 mmHg 2.6 mmHg MV E/A: 1.3 MV dec time: 0.20 sec TR max mervin: 215.8 cm/sec TR max P.6 mmHg RAP systole: 10.0 mmHg RVSP(TR): 28.6 mmHg Left Ventricle The left ventricle is normal in size and function. There is normal left ventricular wall thickness. Ejection Fraction = 60-65%. No regional wall motion abnormalities noted. Right Ventricle The right ventricle is normal in size and function. Atria The left atrium is borderline dilated. The Left Atrial Volume is 32 ml/m2. Right atrial size is normal. A dilated inferior vena cava suggests increased right atrial pressure. Mitral Valve There is borderline mitral valve prolapse. There is no mitral valve stenosis. There is trace to mild mitral regurgitation. Tricuspid Valve The tricuspid valve is normal in structure and function. There is no tricuspid stenosis. There is trace to mild tricuspid regurgitation. Right ventricular systolic pressure is 29mmHg. Aortic Valve The aortic valve is trileaflet. There is no aortic stenosis. Trace to mild aortic regurgitation. Pulmonic Valve The pulmonic valve is normal in structure and function. Trace pulmonic valvular regurgitation. Great Vessels The aortic root is normal size. Mildly dilated ascending aorta. Pericardium/Pleural There is no pericardial effusion. Conclusion A two-dimensional transthoracic echocardiogram with M-mode and Doppler was performed. There is no obvious source of embolus identified. If one is highly clinically suspected, then transesophageal echocardiography should be considered. The left ventricle is normal in size and function. Ejection Fraction = 60-65%. The left atrium is borderline dilated. There is borderline mitral valve prolapse. There is trace to mild mitral regurgitation. There is trace to mild tricuspid regurgitation. Right ventricular systolic pressure is 29mmHg. Trace to mild aortic regurgitation. Trace pulmonic valvular regurgitation. Mildly dilated ascending aorta. Final Reading Physician: Anny Issa signed on 06/18/2017 01:11 PM Ordering Physician: Mandie Blackwell Performed By: Tran Briggs
[2017-06-18] MEDS ORDERED: WARFARIN SODIUM 7.5 MG TAB PO ONE (16:00)
[2017-06-18] MEDS ORDERED: WARFARIN SODIUM 5 MG TAB PO SCH (16:00)
--- NOTE | 2017-06-18 16:59 | PDDCSUM ---
Discharge Summary Discharge Summary: DISCHARGE SUMMARY FOLLOW-UP ITEMS: Outpatient INR follow-up on 06/21 DATE OF ADMISSION: 06/18/2017 DATE OF DISCHARGE: 06/18/2017 DISCHARGE DIAGNOSES: 1. Acute TIA 2. Paroxysmal atrial fibrillation CONSULTATIONS: Neurology PROCEDURES / IMAGING: Brain MRI demonstrating some hyper vascular ischemia and echocardiogram demonstrating no significant valvular abnormalities CHIEF COMPLAINT: Acute paresthesias and paresis SUBJECTIVE: Symptoms completely resolved PHYSICAL EXAM ON DISCHARGE: Systolic blood pressure 130, heart rate 80, afebrile overnight, satting well on room air, alert awake oriented x3, no apparent distress, motor strength is 5/5 bilateral lower extremities, sensation is intact and symmetric bilaterally, patient has facial symmetry LABS ON DISCHARGE: Troponin negative, creatinine 0.9, INR 1.8 HOSPITAL COURSE BY PROBLEM: 1. Acute TIA. Patient's symptoms are consistent with an acute TIA and her brain MRI demonstrates that she is certainly at risk for microvascular disease. This event occurred in the setting of her INR being subtherapeutic, and after consultation, Dr. Martinez has recommended that we give some additional oral Coumadin today to get her INR therapeutic and have outpatient monitoring. She also will follow up with the outpatient neurology clinic. 2. Paroxysmal atrial fibrillation. Patient will follow up with [facility] as scheduled. She will be continued on diltiazem and Coumadin. DISCHARGE MEDICATIONS: Please see official discharge medication reconciliation sheet in chart , 7.5 mg of Coumadin given today, then resume regular dosage. DISCHARGE INSTRUCTIONS: Please follow up with outpatient Neurology in 1 week.
--- NOTE | 2017-06-18 17:07 | GCON ---
[f rep st] CONSULTATION REFERRING PHYSICIAN: Mandie Blackwell MD CHIEF COMPLAINT: TIA. HISTORY OF PRESENT ILLNESS: The patient is a very pleasant 72-year-old lady who was diagnosed with paroxysmal atrial fibrillation in November of this year and had try to novel oral anticoagulants previously with adverse side effects. Therefore, her carpet repairer changed her to warfarin with a goal INR between 2 and 3. This morning, she woke up very early, around 4:30 a.m., with wake-up symptoms of left-sided weakness and listing to the left. These symptoms have resolved now. She had missed a dose of Coumadin around 3 days ago and had a subtherapeutic INR at 1.78. She had an MRI brain which, thankfully, showed no acute infarct. It was done this morning while she was acutely symptomatic. Carotid Doppler shows no significant obstructive disease, no change since 2011 on this study. Lastly, she had an echocardiogram, as well, which showed a normal LV and a borderline dilation of the left atrium, consistent with her history of atrial fibrillation. No intracardiac thrombus noted. No obvious source of embolus, etc. REVIEW OF SYSTEMS: Ten-point review of systems was done. Only pertinent to the HPI. PAST MEDICAL HISTORY/SOCIAL HISTORY/FAMILY HISTORY/HOME MEDICATIONS/ALLERGIES: Please refer to Dr. Blackwell's history and physical. PHYSICAL EXAMINATION: VITAL SIGNS: Blood pressure 110/57, temperature 36.3, O2 sats 96%, heart rate 69. GENERAL: Patient is in no acute distress. A very pleasant and lucid lady. NEURO: Higher mental functions. She is awake and alert, can name 5/5, follows commands 5/5, repeat 5/5. No aphasia. Cranial nerve exam normal 2 through 7, 11, and 12. Motor exam: She has no focal weakness on power testing, each extremity. Tone is normal. Sensory exam is normal to light touch throughout. No sensory extension. Coordination is normal in the upper extremities. IMPRESSION AND PLAN: 1. Transient ischemic attack. 2. Paroxysmal Atrial Fibrillation Overall, the patient's clinical history best fits with a transient ischemic attack in the setting of paroxysmal atrial fibrillation and a subtherapeutic INR. This was discussed at great length with the patient, including diet and vitamin K containing foods that can affect the INR. The case was discussed with Pharmacy, and she will be given a higher dose today of 7.5 mg warfarin ( usual dose 5 mg) and have an INR checked tomorrow morning. A prescription has been given for the INR lab draw. She will touch base with [facility] for recommendation regarding her warfarin dosing based on the INR tomorrow. The patient is adamant about discharging home today and declined self administering low-molecular weight heparin at home for bridging purposes. As noted above, she has agreed to have an INR check tomorrow morning and further warfarin adjustments from [facility]. She will return to the emergency department for any recurrent neurologic symptoms. She will follow up with Dr. Ambrosio, her carpet repairer, in the next month. No further recommendations now. She will likely discharge in the near future. Thank you for this consultation. Please do not hesitate to call for any questions or changes in neurologic status. Seventy total minutes on the floor today in reviewing records, imaging, and in direct counseling with the patient. /[id number]/MODL MTDD
[2017-06-19] MEDS ORDERED: Herbals/Supplements -Info Only PO SCH (09:00)
[2017-06-19] MEDS ORDERED: WARFARIN SODIUM 5 MG TAB PO SCH (16:00)
[2017-06-21] MEDS ORDERED: WARFARIN SODIUM 7.5 MG TAB PO SCH (16:00)
== END 2017-06-18 16:22 | disposition home or self-care (01) ==
LOC: F3N 09:17
PROVIDERS: ADMIT Hospitalist; ATTEND Internal Medicine
DX: G45.9 Transient cerebral ischemic attack, unspecified (principal); I48.0 Paroxysmal atrial fibrillation; Z79.01 Long term (current) use of anticoagulants
CPT/HCPCS: 70553; 93005; 93306; 93880; 97165; A9585; G0378; G8987; G8988; G8989

== ENCOUNTER → 2017-07-07 | Outpatient (CLI) | payer OTHER, MEDICARE | LOC: BHFA 09:00 | PROVIDERS: ATTEND Internal Medicine Cardiovascular Disease | DX: I48.91 Unspecified atrial fibrillation (principal) | CPT/HCPCS: 81291-90; 82607-90; 82627-90; 84144-90; 84402-90; 84481-90 ==

== ENCOUNTER 2017-12-30 11:24 | Emergency (ER) | payer OTHER, MEDICARE ==
[2017-12-30 11:34] VITALS: TEMP 97.5
--- NOTE | 2017-12-30 11:39 | CPEKG ---
Heart Rate: 119 RR Interval: 504 QRSD Interval: 92 QT Interval: 316 QTC Interval: 445 QRS Maz[place]: 33 T Wave Mazama: 261 EKG Severity - ABNORMAL ECG - EKG Impression: ATRIAL FIBRILLATION EKG Impression: CONSIDER POSTERIOR INFARCT EKG Impression: REPOL ABNRM SUGGESTS ISCHEMIA, DIFFUSE LEADS Electronically Signed By: Monico Stoddard 30-Dec-2017 12:45:11
--- NOTE | 2017-12-30 12:23 | EDPHY ---
H & P Stated Complaint: fast hr with any activity since wednesday/taking diltiazem/hx afib Time Seen by Provider: 12/30/17 11:43 HPI/ROS: CHIEF COMPLAINT: Recurrent atrial fibrillation HISTORY OF PRESENT ILLNESS: The patient presents to the ED with current palpitations for the past several days. The patient has a history of paroxysmal atrial fibrillation. She had been on Xarelto which she stopped taking briefly last . She resume that medication on Wednesday. She also started taking diltiazem at that point time. She reports that her palpitations are worsened with exertion. The patient did contact her pot sander who advised she come to the emergency department for evaluation. The patient reports that she ate breakfast today and drank water immediately prior to arrival. REVIEW OF SYSTEMS: A comprehensive 10 point review of systems is otherwise negative aside from elements mentioned in the history of present illness. Source: Patient Exam Limitations: No limitations - Personal History Current Tetanus/Diphtheria Vaccine: Unsure - Medical/Surgical History Hx Asthma: Yes Hx Chronic Respiratory Disease: No Hx Diabetes: No Hx Cardiac Disease: Yes Hx Renal Disease: No Hx Cirrhosis: No Hx Alcoholism: No Hx HIV/AIDS: No Hx Splenectomy or Spleen Trauma: No Other PMH: PMH: asthma, uterine cancer. pemphigus. tonsillectomy, cataract surgery, hysterectomy, AFIB - Social History Smoking Status: Former smoker - Physical Exam Exam: General Appearance: Alert, no distress Eyes: Pupils equal and round no pallor or injection ENT, Mouth: Mucous membranes moist Respiratory: There are no retractions, lungs are clear to auscultation Cardiovascular: Irregular, rate 89 Gastrointestinal: Abdomen is soft and nontender, no masses, bowel sounds normal Neurological: A&O, normal motor function, normal sensory exam, normal cranial nerves Skin: Warm and dry, no rashes Musculoskeletal: Neck is supple nontender Extremities: symmetrical, full range of motion Constitutional: Initial Vital Signs Temperature (C) 36.4 C 12/30/17 11:26 Heart Rate 98 12/30/17 11:26 Respiratory Rate 18 12/30/17 11:26 Blood Pressure 126/81 H 12/30/17 11:26 O2 Sat (%) 99 12/30/17 11:26 O2 Delivery Mode Room Air Allergies/Adverse Reactions: No Known Allergies Allergy (Verified 12/30/17 11:25) Home Medications: Medication Instructions Recorded Diltiazem HCl [Diltiazem 12Hr ER] 60 mg PO BID PRN 06/18/17 Herbals/Supplements -Info Only 1 each PO DAILY 06/18/17 Eliquis 12/30/17 Medical Decision Making ED Course/Re-evaluation: The patient presents to the emergency department with recurrent atrial fibrillation. She is currently rate controlled at 89. She she is not NPO. She also had a lapse in her anticoagulation use. I discussed the case with Dr. Webb from Cardiology. The patient will be discharged from the emergency department given her current NPO status. She will continue her regular Xarelto and diltiazem. She will be NPO after midnight. She will return to the [facility] tomorrow for repeat EKG and possible VISHAL cardioversion. She does understand return to the ED for chest pain, syncope, severe dyspnea or markedly worsening symptoms. Differential Diagnosis: Differential diagnosis considered includes atrial fibrillation, atrial flutter, dehydration, metabolic abnormality Departure - Departure Disposition: Home, Routine, Self-Care Clinical Impression: Atrial fibrillation Condition: Good Instructions: A-fib (Atrial Fibrillation) (DC) Additional Instructions: 1. Please continue your anticoagulation and diltiazem. 2. Nothing to eat or drink after midnight. 3. [facility] will contact you this afternoon to schedule your cardioversion for tomorrow. 4. Please return to the ED for severe chest pain, difficulty breathing, passing out or other concerns. Referrals: Justine Hernández MD [Primary Care Provider] - As per Instructions
[2017-12-30 13:01] VITALS: BP 121/82; PULSE 88; RESP 16; O2SAT 95
== END 2017-12-30 12:55 | disposition home or self-care (01) ==
DX: I48.91 Unspecified atrial fibrillation (principal); J45.909 Unspecified asthma, uncomplicated; Z85.42 Personal history of malignant neoplasm of other parts of uterus; Z87.891 Personal history of nicotine dependence

== ENCOUNTER 2017-12-31 11:44 | Day surgery (SDC) | payer OTHER, MEDICARE ==
[2017-12-31] MEDS ORDERED: MIDAZOLAM 2 MG/2 ML VIAL IVP ONE (11:45)
[2017-12-31] MEDS ORDERED: NS 500 ML IV ONE (11:45)
[2017-12-31] MEDS ORDERED: BENZOCAINE UNIT DOSE SPRAY HURRICAINE MM ONE (11:45)
[2017-12-31] MEDS ORDERED: fentaNYL 100 MCG/2 ML INJ IVP ONE (11:45)
[2017-12-31] MEDS ORDERED: ATROPINE SULFATE 1 MG/10 ML SYR IVP ONE (11:45)
--- NOTE | 2017-12-31 12:14 | CPEKG ---
Heart Rate: 93 RR Interval: 645 QRSD Interval: 90 QT Interval: 368 QTC Interval: 458 QRS [place]: 29 T Wave [place]: 268 EKG Severity - ABNORMAL ECG - EKG Impression: ATRIAL FIBRILLATION, V-RATE 70-127 EKG Impression: NONSPECIFIC REPOL ABNORMALITY, DIFFUSE LEADS Electronically Signed By: Austen Schreiber 31-Dec-2017 17:01:44
[2017-12-31 12:39] LABS: INR 0.96 (0.83-1.16)
--- NOTE | 2017-12-31 12:59 | PDHPUP ---
History & Physical Update H&P update statement: This history and physical update is based on an assessment of the patient which was completed after admission or registration (within 24 hours), but prior to the surgery/procedure. H&P update: H&P reviewed & patient examined, no change in patient's condition since H&P completed
[2017-12-31] MEDS ORDERED: LIDOCAINE 2% 5 ML SDV ONE (13:09)
[2017-12-31] MEDS ORDERED: PROPOFOL/EMULSION 500 MG/50 ML BOTTLE IV ONE (13:09)
--- NOTE | 2017-12-31 13:14 | PDGENHP ---
History & Physical Chief Complaint: AF History of Present Illness: 72 yo F with hx PAF. She has been in AF for 5 days Pertinent Past, Social, Family History: reviewed Relevant Physical Exam: irreg irreg rhythm Cardiorespiratory Assessment: stable per anesthesia
--- NOTE | 2017-12-31 13:30 | PDTEE1 ---
VISHAL Cardioversion Procedure Procedure: electrical cardioversion, transesophageal echo Indications: atrial fibrillation Consent: signed and in chart Anticoagulation: eliquis Procedural Details: Pads were placed in anterior-posterior position. Sedation was provided by the anesthesia service. VISHAL probe was advanced and standard images obtained. There is no evidence of left atrial or left atrial appendage thrombus. Synchronized cardioversion attempt #1: 200J Results: normal sinus rhythm Conclusions: successful VISHAL cardioversion Patient Problems: Problems Problem Status Onset Atrial fibrillation Acute TIA (transient ischemic attack) Acute
--- NOTE | 2017-12-31 13:36 | PDANEPAE ---
ANE History of Present Illness 72 yo female with paroxysmal A-fib presents for VISHAL/ possible CV. ANE Past Medical History - Cardiovascular History Hx Hypertension: No Hx Arrhythmias: Yes Hx Chest Pain: No - Pulmonary History Hx COPD: No Hx Asthma/Reactive Airway Disease: Yes Hx Recent Upper Respiratory Infection: No Hx Oxygen in Use at Home: No Hx Sleep Apnea: No Pulmonary History Comment: No ER visits for RAD. - Endocrine History Hx Diabetes: Yes Hypothyroid: No Hyperthyroid: No Endocrine History Comment: pre-DM. On metformin. Recently diagnosed with [place]'s dz, took her hydrocortisone x5 days, then held it with A-fib onset. - Renal History Hx Renal Disorders: No - Liver History Hx Hepatic Disorders: No - Chronic Pain History Chronic Pain: No ANE Review of Systems Review of Systems: - Systems Constitutional: Reports: no symptoms Cardiac: Reports: no symptoms Respiratory: Reports: shortness of breath (Subjective SOB with onset of A fib. Attributes this to anxiety about the A fib.) Gastrointestinal: Reports: no symptoms Neurological: Reports: paresthesia (L leg sciatica, long-standing per pt) ANE Patient History - Allergies Allergies/Adverse Reactions: aspirin Adverse Reaction (Unknown, Verified 12/31/17 13:15) - Home Medications Home Medications: Diltiazem HCl [Diltiazem 12Hr ER] 60 mg PO BID PRN 06/18/17 [Last Taken 05:00] Herbals/Supplements -Info Only 1 each PO DAILY 06/18/17 [Last Taken 12/30/17 08: 00] Eliquis 5 mg PO BID 12/30/17 [Last Taken 12/31/17 05:00] Metformin HCl 500 mg PO DAILY 12/31/17 [Last Taken 12/30/17 08:00] - NPO status NPO Status: no food or drink >8 hours NPO Since - Liquids (Date): 12/31/17 NPO Since - Liquids (Time): 05:00 NPO Since - Solids (Date): 12/31/17 NPO Since - Solids (Time): 05:00 - Anes Hx Anes Hx: no prior problems - Smoking Hx Smoking Status: Former smoker Marijuana use: No - Alcohol Use Alcohol Use: Rarely - Family Anes Hx Family Anes Hx: neg - N/A ANE Labs/Vital Signs - Labs Result Diagrams: 12/31/17 12:00 - Vital Signs Vital Signs: reviewed preoperatively; see RN documention for details Height: 185 cm Weight: 77.1 kg ANE Physical Exam - Airway Neck exam: FROM Mallampati Score: Class 2 (short TMD) Mouth exam: normal dental/mouth exam - Pulmonary Pulmonary: clear to auscultation - Cardiovascular Cardiovascular: irregularly irregular - ASA Status ASA Status: II ANE Anesthesia Plan Anesthesia Plan: GA with mask Total IV Anesthesia: Yes Urgent/Emergent Case: Raquel brewer completed preop but documented later for safe timely pt care
[2017-12-31] MEDS ORDERED: NALOXONE HCL 0.4 MG/ML INJ IVP PRN (13:37)
[2017-12-31] MEDS ORDERED: ALBUTEROL 3 ML DEYVIAL IH PRN (13:37)
--- NOTE | 2017-12-31 13:37 | POSTANESTH ---
Post Anesthetic Evaluation Cardiovascular Status: Normal, Stable Respiratory Status: Normal, Stable Level of Consciousness/Mental Status: Can Participate in Eval, Moderately Sleepy Pain Control: Adequate, Prn Tx Ordered Nausea/Vomiting Control: Adequate, Prn Tx Ordered Complications Possibly Related to Anesthesia: None Noted
--- NOTE | 2017-12-31 17:34 | ECHO ---
[email or web address] [address] [address] Main: [phone] Fax: Transesophageal Echocardiography Name: RADHA CANTU MR#: [id number] Study Date: 12/31/2017 Study Time: 12:55 PM Date of : 1945 Age: 72 year(s) Height: ( ) Weight: ( ) BSA: Gender: Female Examination: VISHAL Indication: pre-cardioversion; r/o clot Image Quality: Contrast: I.V. dose of agitated saline Requested by: Lashay Webb Heart Rate: Rhythm: BP: / Procedure Staff Bag Shaker: Tran Briggs [facility] Reading Physician: Lashay Webb MD Requesting Provider: VISHAL Exam Details Contrast: I.V. dose of agitated saline Conclusions: Normal size left ventricle. Normal global systolic LV function. Normal size right ventricle. Normal RV function. An agitated saline study was performed and was negative for intracardiac shunting. No thrombus is noted in the left atrium. Mild mitral valve regurgitation is present. Measurements: Chambers Valvular Assessment AV/MV Valvular Assessment TV/PV Normal Normal Normal Name Value Range Name Value Range Name Value Range Additional Measurements: Findings: Left Ventricle: Normal size left ventricle. Normal global systolic LV function. Right Ventricle: Normal size right ventricle. Normal RV function. Left Atrium: The left atrium is normal in size. An agitated saline study was performed and was negative for Patient: RADHA CANTU Study Date: 12/31/2017 Page 1 of 2 12:55 PM intracardiac shunting. No thrombus is noted in the left atrium. Left Atrial Appendage: No tumor in left atrial appendage. Right Atrium: The right atrium is normal in size. Mitral Valve: The mitral valve is normal in appearance and function. Mild mitral valve regurgitation is present. Aortic Valve: The aortic valve is tri-leaflet and functions normally. There is no significant aortic valve regurgitation. No aortic valve stenosis is present. Tricuspid Valve: The tricuspid valve is normal in appearance and function. Trivial tricuspid valve regurgitation. Pulmonic Valve: The pulmonic valve is normal in appearance. Trivial pulmonic valve regurgitation. l1n (No Signature Object) Patient: RADHA CANTU Study Date: 12/31/2017 Page 2 of 2 12:55 PM D:_[id number]
--- NOTE | 2018-01-03 07:45 | CPEKG ---
Heart Rate: 108 RR Interval: 556 P-R Interval: 142 QRSD Interval: 96 QT Interval: 352 QTC Interval: 472 P [place]: 68 QRS [place]: 16 T Wave [place]: 239 EKG Severity - ABNORMAL ECG - EKG Impression: Atrial tachycardia folowed by sinus rhythm EKG Impression: NONSPECIFIC REPOL ABNORMALITY, DIFFUSE LEADS Electronically Signed By: Austen Schreiber 03-Jan-2018 08:04:26
--- NOTE | 2018-01-03 07:48 | CPEKG ---
Heart Rate: 81 RR Interval: 741 P-R Interval: 152 QRSD Interval: 102 QT Interval: 376 QTC Interval: 437 P [place]: 69 QRS [place]: 12 T Wave [place]: 263 EKG Severity - NORMAL ECG - EKG Impression: SINUS RHYTHM Electronically Signed By: Austen Schreiber 03-Jan-2018 08:04:18
== END 2017-12-31 14:45 | disposition home or self-care (01) ==
LOC: FCATH 11:44
PROVIDERS: ATTEND Internal Medicine Cardiovascular Disease
PROC: B245ZZ4 Ultrasonography of Left Heart, Transesophageal (ICD-10-PCS; principal; 2017-12-31)
PROC: 5A2204Z Restoration of Cardiac Rhythm, Single (ICD-10-PCS; principal; 2017-12-31)
DX: I48.0 Paroxysmal atrial fibrillation (principal); J45.909 Unspecified asthma, uncomplicated; R73.03 Prediabetes; E27.1 Primary adrenocortical insufficiency; Z79.01 Long term (current) use of anticoagulants; Z86.73 Personal history of transient ischemic attack (TIA), and cerebral infarction without residual deficits
CPT/HCPCS: J2704

== ENCOUNTER → 2018-03-18 | Outpatient (CLI) | payer OTHER, MEDICARE | LOC: BHFA 16:00 | PROVIDERS: ATTEND Internal Medicine Cardiovascular Disease | DX: I48.91 Unspecified atrial fibrillation (principal) ==

== ENCOUNTER → 2018-03-31 | Outpatient (CLI) | payer OTHER, MEDICARE | LOC: BMCIMAGING 16:44 | PROVIDERS: ATTEND Family Medicine Geriatric Medicine | DX: M51.16 Intervertebral disc disorders with radiculopathy, lumbar region (principal); M53.3 Sacrococcygeal disorders, not elsewhere classified; M47.897 Other spondylosis, lumbosacral region; M16.0 Bilateral primary osteoarthritis of hip ==

== ENCOUNTER 2018-04-14 12:28 | Day surgery (SDC) | payer OTHER, MEDICARE ==
[2018-04-14] MEDS ORDERED: NS 500 ML IV ONE (12:29)
[2018-04-14] MEDS ORDERED: MIDAZOLAM 2 MG/2 ML VIAL IVP ONE (12:29)
[2018-04-14] MEDS ORDERED: fentaNYL 100 MCG/2 ML INJ IVP ONE (12:29)
[2018-04-14] MEDS ORDERED: ATROPINE SULFATE 1 MG/10 ML SYR IVP ONE (12:29)
--- NOTE | 2018-04-14 12:36 | CPEKG ---
Heart Rate: 105 RR Interval: 571 QRSD Interval: 92 QT Interval: 316 QTC Interval: 418 QRS [place]: 41 T Wave [place]: -89 EKG Severity - ABNORMAL ECG - EKG Impression: ATRIAL FIBRILLATION EKG Impression: REPOL ABNRM SUGGESTS ISCHEMIA, DIFFUSE LEADS EKG Impression: COMPARED WITH 12/31/2017 AT 1:37 P.M. ATRIAL FIBRILLATION NOW PRESENT Electronically Signed By: Lashay Webb 14-Apr-2018 18:03:46
[2018-04-14 13:21] LABS: INR 1.19 (0.83-1.16); PROTIME(PATIENT) 15.3 SEC (12.0-15.0)
--- NOTE | 2018-04-14 13:27 | PDANEPAE ---
ANE History of Present Illness cardioversion ANE Past Medical History - Cardiovascular History Hx Hypertension: No Hx Arrhythmias: Yes Hx Chest Pain: No - Pulmonary History Hx COPD: No Hx Asthma/Reactive Airway Disease: Yes Hx Recent Upper Respiratory Infection: No Hx Oxygen in Use at Home: No Hx Sleep Apnea: No Pulmonary History Comment: No ER visits for RAD. - Endocrine History Hx Diabetes: Yes Endocrine History Comment: pre-DM. On metformin. Recently diagnosed with [place]'s dz, took her hydrocortisone x5 days, then held it with A-fib onset. - Renal History Hx Renal Disorders: No - Liver History Hx Hepatic Disorders: No - Chronic Pain History Chronic Pain: No ANE Review of Systems Review of Systems: SOB - Exercise capacity METS (RN): 4 METS ANE Patient History - Allergies Allergies/Adverse Reactions: aspirin Allergy (Unknown, Verified 12/31/17 13:44) - Home Medications Home medications: home medication list seen and reviewed Home Medications: Diltiazem HCl [Diltiazem 12Hr ER] 120 mg PO DAILY PRN 06/18/17 [Last Taken 04/14 09:00] Herbals/Supplements -Info Only 1 each PO DAILY 06/18/17 [Last Taken 03/31/18 08: 00] Eliquis 5 mg PO BID 12/30/17 [Last Taken 04/14/18 09:00] - NPO status NPO Status: no food or drink >8 hours - Anes Hx Anes Hx: no prior problems - Smoking Hx Smoking Status: Former smoker - Family Anes Hx Family Anes Hx: none ANE Labs/Vital Signs - Labs Result Diagrams: 04/14/18 12:41 - Vital Signs Height: 185 cm Weight: 77.1 kg ANE Physical Exam - Airway Neck exam: FROM Mallampati Score: Class 1 Mouth exam: normal dental/mouth exam - Pulmonary Pulmonary: no respiratory distress - Cardiovascular Cardiovascular: irregularly irregular - ASA Status ASA Status: II ANE Anesthesia Plan Total IV Anesthesia: Yes
[2018-04-14] MEDS ORDERED: PROPOFOL 200 MG/20 ML VIAL ONE (13:31)
--- NOTE | 2018-04-14 13:33 | POSTANESTH ---
Post Anesthetic Evaluation Cardiovascular Status: Similar to Pre-Op Cond Respiratory Status: Normal, Stable, Similar to Pre-op Cond. Level of Consciousness/Mental Status: Can Participate in Eval, Mildly Sleepy, Arousable Pain Control: Adequate, Prn Tx Ordered Nausea/Vomiting Control: Adequate, Prn Tx Ordered Complications Possibly Related to Anesthesia: None Noted
--- NOTE | 2018-04-14 13:40 | PDCARD ---
Cardioversion Procedure Procedure: electrical cardioversion Indications: atrial fibrillation Consent: signed and in chart Anticoagulation: eliqumorenita Procedural Details: Pads were placed in anterior-posterior position. Synchronized cardioversion attempt #1: 200J Results: normal sinus rhythm Conclusions: successful cardioversion Patient Problems: Problems Problem Status Onset Atrial fibrillation Acute TIA (transient ischemic attack) Acute
--- NOTE | 2018-04-14 13:49 | CPEKG ---
Heart Rate: 71 RR Interval: 845 P-R Interval: 160 QRSD Interval: 100 QT Interval: 420 QTC Interval: 457 P [place]: 70 QRS [place]: 20 T Wave [place]: -68 EKG Severity - NORMAL ECG - EKG Impression: SINUS RHYTHM EKG Impression: Diffuse repolarization abnormalities EKG Impression: COMPARED WITH 04/14/2018 AT 12:34 P.M. SINUS RHYTHM HAS BEEN RESTORED Electronically Signed By: Lashay Webb 14-Apr-2018 18:03:13
[2018-04-14] MEDS ORDERED: ACETAMINOPHEN 500 MG TAB PO PRN (13:58)
[2018-04-14] MEDS ORDERED: ONDANSETRON 4 MG/2 ML VIAL IVP PRN (13:58)
[2018-04-14] MEDS ORDERED: fentaNYL 100 MCG/2 ML INJ IVP PRN (13:58)
[2018-04-14] MEDS ORDERED: HYDROCODONE/APAP 5/325 TAB PO PRN (13:58)
[2018-04-14] MEDS ORDERED: NALOXONE HCL 0.4 MG/ML INJ IVP PRN (13:58)
== END 2018-04-14 15:04 | disposition home or self-care (01) ==
LOC: FCATH 12:28
PROVIDERS: ATTEND Internal Medicine Cardiovascular Disease
PROC: 5A2204Z Restoration of Cardiac Rhythm, Single (ICD-10-PCS; principal; 2018-04-14)
DX: I48.0 Paroxysmal atrial fibrillation (principal); E78.5 Hyperlipidemia, unspecified; R73.03 Prediabetes; J45.909 Unspecified asthma, uncomplicated; Z79.01 Long term (current) use of anticoagulants; Z85.42 Personal history of malignant neoplasm of other parts of uterus; Z87.891 Personal history of nicotine dependence; Z86.73 Personal history of transient ischemic attack (TIA), and cerebral infarction without residual deficits; Z82.49 Family history of ischemic heart disease and other diseases of the circulatory system
CPT/HCPCS: J2704

== ENCOUNTER → 2018-04-27 | Outpatient (CLI) | payer OTHER, MEDICARE | LOC: BHFA 15:00 | PROVIDERS: ATTEND Internal Medicine Cardiovascular Disease | DX: I48.91 Unspecified atrial fibrillation (principal) ==

== ENCOUNTER → 2018-05-04 | Outpatient (CLI) | payer OTHER, MEDICARE | LOC: FCPNEURO 23:03 | PROVIDERS: ATTEND Psychiatry & Neurology Sleep Medicine | DX: G47.33 Obstructive sleep apnea (adult) (pediatric) (principal) ==

== ENCOUNTER 2018-08-28 13:24 | Emergency (ER) | payer OTHER, MEDICARE ==
--- NOTE | 2018-08-28 13:53 | CPEKG ---
Test Reason : OPEN Blood Pressure : / mmHG Vent. Rate : 084 BPM Atrial Rate : 000 BPM P-R Int : 136 ms QRS Dur : 102 ms QT Int : 419 ms P-R-T Axes : 000 038 -64 degrees QTc Int : 496 ms Atrial fibrillation Nonspecific repol abnormality, diffuse leads Borderline prolonged QT interval Confirmed by Rhett Escobar ([id number]) on 08/28/2018 1:53:21 PM Referred By: Confirmed By:Rhett Escobar
[2018-08-28] MEDS ORDERED: NS 1,000 ML IV ONE (14:00)
--- NOTE | 2018-08-28 14:03 | EDPHY ---
H & P Time Seen by Provider: 08/28/18 13:31 HPI/ROS: Chief complaint. Palpitation HPI. Patient is 73-year-old female with history intermittent atrial fibrillation. Last night at 10:30 p.m. She awoke sense of pounding in irregular heartbeat. Today she has been somewhat lightheaded and weak. No chest pain. Slight shortness of breath with exertion. Symptoms are quite similar to previous presentations of atrial fibrillation. She requests electrical cardioversion. Her last episode of this was in May 2018 when she was last in atrial fibrillation and she was cardioverted in the ED. She did have some caffeine yesterday which is unusual for her possible precipitant. Otherwise no unusual leg swelling ,fever, cough. Patient is on Eliquis has been taking it regularly. She is also on diltiazem ROS 10 systems were reviewed and negative with the exception of the elements mentioned in the history of present illness Past Medical/Surgical History: Past medical history is significant asthma, uterine cancer, pemphigus vulgaris, cataract surgery, hysterectomy, intermittent atrial fibrillation Social History: , nonsmoker, no alcohol Smoking Status: Former smoker Physical Exam: General Appearance: Alert pleasant female signs stable Eyes: Pupils equal and round no pallor or injection. ENT, Mouth: Mucous membranes are moist. Respiratory: There are no retractions, lungs are clear to auscultation. Cardiovascular: Irregularly irregular rate rhythm Gastrointestinal: Abdomen is soft and nontender, no masses, bowel sounds normal. Neurological: Awake and alert, sensory and motor exams grossly normal. Skin: Warm and dry, no rashes. Musculoskeletal: Neck is supple nontender. Extremities symmetrical, full range of motion. Psychiatric: Patient is oriented X 3, there is no agitation. Constitutional: Initial Vital Signs Temperature (C) 36.7 C 08/28/18 13:28 Heart Rate 86 08/28/18 13:28 Respiratory Rate 16 08/28/18 13:28 Blood Pressure 106/77 08/28/18 13:28 O2 Sat (%) 94 08/28/18 13:28 O2 Delivery Mode Room Air Allergies/Adverse Reactions: aspirin Allergy (Unknown, Verified 06/15/18 15:26) Home Medications: Medication Instructions Recorded Diltiazem HCl [Diltiazem 12Hr ER] 120 mg PO DAILY PRN 06/18/17 Herbals/Supplements -Info Only 1 each PO DAILY 06/18/17 Eliquis 5 mg PO BID 12/30/17 Medical Decision Making - Diagnostics EKG Interpretation: EKG interpreted by me shows atrial fibrillation and. Normal axis. QRS is normal. There are some nonspecific T changes inferiorly and laterally. Ventricular response is 84 This is not significantly different than EKG prior to cardioversion in May Post conversion EKG shows normal sinus rhythm normal interval and axis. QRS is normal no significant ST elevation or depression. The nonspecific T-wave changes seen prior to cardioversion have now resolved. Procedures: IV normal saline, monitor Procedure: Electrical cardioversion. The patient was electrically cardioverted for atrial fibrillation. The patient was on a continuous barrel filler head, with airway equipment at the bedside. The patient was on continuous pulse oximetry. The cardioversion was attempted with 200 joules biphasic current. The cardioversion was successful. The patient tolerated the procedure well with no complications. The procedure was performed by myself. Procedure: Conscious sedation. Indication: Cardioversion I will perform cardioversion on this patient The patient is an appropriate candidate to tolerate procedural sedation. The patient's vital signs and mental status are appropriate. The risks, benefits and alternatives of the sedation were discussed with the patient. The patient is ASA classification 1. The patient's Mallampati airway score was 1 and the patient did meet the 3-3- 2 airway measurements. A time out was completed. The patient was sedated with propofol 95 mg IV. The patient was monitored with continuous pulse oximetry, photonics engineer and end tidal CO2. There were no complications and no significant hypoxemia. I performed both the sedation and the procedure. The total time I spent at the bedside during the procedural sedation was 20 minutes. The patient was examined after the procedural sedation and has returned to their pre -sedation baseline with normal vital signs and a normal examination. ED Course/Re-evaluation: I consulted and discussed the case with Dr. Webb who agrees with cardioversion as the patient is quite certain that she has not missed any doses of Eliquis. Symptoms began last night at 10:30 a.m.. Plan will be for propofol sedation and cardioversion Re-evaluation at 3:30 p.m. Patient is stable. Differential Diagnosis: I considered electrolyte abnormality, acute coronary syndrome. Patient was in atrial fibrillation and now has been cardioverted into normal sinus rhythm - Data Points Laboratory Results: Laboratory Results 08/28/18 14:05 08/28/18 14:05 08/28/18 08/28/18 08/28/18 14:12 14:05 14:05 WBC 3.82 10^3/uL 10^3/uL (3.80-9.50) RBC 4.67 10^6/uL 10^6/uL (4.18-5.33) Hgb 13.6 g/dL g/dL (12.6-16.3) Hct 41.3 % % (38.0-47.0) MCV 88.4 fL fL (81.5-99.8) MCH 29.1 pg pg (27.9-34.1) MCHC 32.9 g/dL g/dL (32.4-36.7) RDW 14.2 % % (11.5-15.2) Plt Count 257 10^3/uL 10^3/uL (150-400) MPV 9.0 fL fL (8.7-11.7) Neut % (Auto) 40.3 % % (39.3-74.2) Lymph % (Auto) 42.7 % % (15.0-45.0) [place] % (Auto) 12.8 % % (4.5-13.0) Eos % (Auto) 2.9 % % (0.6-7.6) Baso % (Auto) 1.3 % % (0.3-1.7) Nucleat RBC Rel Count 0.0 % % (0.0-0.2) Absolute Neuts (auto) 1.54 10^3/uL L 10^3/uL (1.70-6.50) Absolute Lymphs (auto) 1.63 10^3/uL 10^3/uL (1.00-3.00) Absolute Monos (auto) 0.49 10^3/uL 10^3/uL (0.30-0.80) Absolute Eos (auto) 0.11 10^3/uL 10^3/uL (0.03-0.40) Absolute Basos (auto) 0.05 10^3/uL 10^3/uL (0.02-0.10) Absolute Nucleated RBC 0.00 10^3/uL 10^3/uL (0-0.01) Immature Gran % 0.0 % % (0.0-1.1) Immature Gran # 0.00 10^3/uL 10^3/uL (0.00-0.10) Sodium 140 mEq/L mEq/L (135-145) Potassium 4.4 mEq/L mEq/L (3.3-5.0) Chloride 106 mEq/L mEq/L (97-110) Carbon Dioxide 28 mEq/l mEq/l (22-31) Anion Gap 6 mEq/L mEq/L (6-14) BUN 11 mg/dL mg/dL (7-23) Creatinine 0.7 mg/dL mg/dL (0.6-1.0) Estimated GFR > 60 Glucose 93 mg/dL mg/dL (70-100) Calcium 9.3 mg/dL mg/dL (8.5-10.4) POC Troponin I 0.00 ng/mL ng/mL (0.00-0.08) Medications Given: Discontinued Medications Sodium Chloride (Ns) 1,000 mls @ 0 mls/hr IV EDNOW ONE; Wide Open PRN Reason: Protocol Stop: 08/28/18 14:01 Last Admin: 08/28/18 14:16 Dose: 1,000 mls Propofol (Diprivan) 100 mg IVP EDNOW ONE Stop: 08/28/18 14:55 Last Admin: 08/28/18 15:13 Dose: 95 mg Point of Care Test Results: Chemistry 08/28/18 14:12 POC Troponin I 0.00 ng/mL ng/mL (0.00-0.08) Departure - Departure Disposition: Home, Routine, Self-Care Clinical Impression: Atrial fibrillation Qualifiers: Atrial fibrillation type: paroxysmal Qualified Code(s): I48.0 - Paroxysmal atrial fibrillation Condition: Good Instructions: A-fib (Atrial Fibrillation) (ED) Additional Instructions: Continue Eliquis as prescribed Continue your diltiazem as prescribed Return for worsening symptoms and further atrial fibrillation Follow-up with Dr. Webb in the next 2-3 days Referrals: Justine Hernández MD [Primary Care Provider] - As per Instructions Lashay Webb MD [Medical Doctor] - 2-3 days, call for appt.
[2018-08-28 14:17] LABS: PLATELET COUNT 257 10^3/uL (150-400)
[2018-08-28] MEDS ORDERED: PROPOFOL 200 MG/20 ML VIAL IVP ONE (14:54)
--- NOTE | 2018-08-28 15:36 | CPEKG ---
Test Reason : OPEN Blood Pressure : / mmHG Vent. Rate : 059 BPM Atrial Rate : 060 BPM P-R Int : 170 ms QRS Dur : 103 ms QT Int : 439 ms P-R-T Axes : 068 037 044 degrees QTc Int : 435 ms Sinus rhythm Confirmed by Rhett Escobar ([id number]) on 08/28/2018 3:35:36 PM Referred By: Confirmed By:Rhett Escobar
[2018-08-28 16:12] VITALS: BP 109/69
== END 2018-08-28 16:32 | disposition home or self-care (01) ==
DX: I48.0 Paroxysmal atrial fibrillation (principal); E86.9 Volume depletion, unspecified
CPT/HCPCS: 92960; 93005; 96360; 99152; 99285; J2704; 84484-PO; 96374

== ENCOUNTER 2018-12-18 21:15 | Emergency (ER) | payer OTHER, MEDICARE ==
--- NOTE | 2018-12-18 21:43 | EDPHY ---
H & P Time Seen by Provider: 12/18/18 21:37 HPI/ROS: HPI Left ankle injury. 73-year-old female by private vehicle with her daughter. She reports she was walking out by the resident more at 4:30 p.m. Today when she tripped and fell inverting her left ankle. She complains of isolated left ankle pain. She denies any other injury or complaint. She did not hit her head. She is on Eliquis. ROS: Constitutional: No fever, no chills. No weakness. Musculoskeletal: No back pain. No neck pain. As above. She denies other extremity pain. Skin: No lacerations or abrasions. Neurological: No headache. No focal weakness or altered sensation. Past medical history: Asthma, uterine cancer, tonsillectomy, cataract surgery, hysterectomy, atrial fibrillation. Social history: Nonsmoker. Here with her daughter. No alcohol. Physical Exam: General Appearance: Alert, no distress. This patient is responding to questions appropriately and in full sentences. This patient appears well- hydrated and well-nourished. Eyes: Pupils equal and round no pallor or injection. No lid edema, erythema or injection. Left ankle exam: Significant for tenderness on palpation of the lateral malleolus with some diffuse swelling. No significant erythema or warmth. No ecchymosis noted. No bony step-off or deformity noted on palpation. The left foot is neurovascularly intact. No tenderness on palpation of the proximal fibula. Neurological: Motor sensory function is grossly intact. Cranial nerves are normal. ML or function is normal. Skin: Warm and dry, no rashes. Musculoskeletal: Neck is supple and nontender. Extremities are symmetrical. All joints range without pain or impingement. Psychiatric: No agitation. No depression. Database: EKG: Imaging: Left ankle x-ray series: Significant for nondisplaced fracture of the distal tip of the fibula. Otherwise a bony alignment is normal. No other significant findings. Interpreted by me. Procedures: Emergency department course: Triage vital signs reviewed. She is moderately hypertensive. Vital signs are otherwise normal. Left ankle x-rays obtained from triage. She declines pain medication. She reports that she took Tylenol prior to coming here. She cannot take ibuprofen because she is on Eliquis. 9:50 p.m., patient re-evaluated. Discussed results of x-rays as noted above. Discussed diagnosis of distal fibula fracture. Left foot and ankle be placed in an orthopedic boot. She will be provided crutches. She does not feel that she can bear weight on her ankle at this time. She feels comfortable going home with her daughter. Orthopedic follow-up discussed with her. Return to emergency department precautions reviewed. All their questions were answered. The patient was discharged home in good condition with her daughter. Differential Diagnosis: The differential diagnosis on this patient includes but is not limited to left ankle sprain. Nondisplaced distal fibula fracture. Lisfranc injury, other significant traumatic injury unlikely. This represents a partial list of diagnoses considered. These considerations are based on history, physical exam , past history, reassessment and diagnostic testing. Smoking Status: Former smoker Constitutional: Initial Vital Signs Temperature (C) 36.6 C 12/18/18 21:28 Heart Rate 72 12/18/18 21:28 Respiratory Rate 16 12/18/18 21:28 Blood Pressure 161/76 H 12/18/18 21:28 O2 Sat (%) 95 12/18/18 21:28 O2 Delivery Mode Room Air Allergies/Adverse Reactions: aspirin Allergy (Unknown, Verified 12/18/18 21:27) Home Medications: Medication Instructions Recorded Diltiazem HCl [Diltiazem 12Hr ER] 120 mg PO DAILY PRN 06/18/17 Herbals/Supplements -Info Only 1 each PO DAILY 06/18/17 Eliquis 5 mg PO BID 12/30/17 Flecainide Acetate 12/18/18 Departure - Departure Disposition: Home, Routine, Self-Care Clinical Impression: Left fibular fracture, Left ankle sprain Condition: Good Instructions: Ankle Fracture (ED) Additional Instructions: Read and follow provided instructions. Follow-up with Orthopedics, Dr. Erin Lucero or 1 of his partners in 2-3 days for re-evaluation. Keep your foot and ankle in the orthopedic protective boot while up and ambulating. Use crutches as instructed. Weightbear as tolerated only. Narcotic pain medication: 1-2 every 4-6 hours as needed for pain. Return to the emergency department for worsening pain, swelling, discoloration, loss of sensation or other serious concerns. Referrals: Erin Lucero MD [Medical Doctor] - As per Instructions
[2018-12-18] MEDS ORDERED: HYDROCOD/APAP 5/325 PREPACK#6 BTL TAKEHOME ONE (21:58)
[2018-12-18 22:12] VITALS: BP 115/86
== END 2018-12-18 22:38 | disposition home or self-care (01) ==
DX: S82.832A Other fracture of upper and lower end of left fibula, initial encounter for closed fracture (principal); W19.XXXA Unspecified fall, initial encounter; Y93.01 Activity, walking, marching and hiking; Y92.9 Unspecified place or not applicable; Y99.9 Unspecified external cause status
CPT/HCPCS: 73610; 99283; L4386